=== PATIENT | male | born 1985 | race Two or more races ===

== ENCOUNTER 2016-08-10 23:48 | Emergency (ER) | payer OTHER ==
[~2016-08-10] VITALS: Ht 170.2 cm; Wt 72.6 kg
[2016-08-10] MEDS ORDERED: NORCO 10-325 T1 EACH ORAL (23:58)
[2016-08-11 00:06] VITALS: BP 111/55
[2016-08-11] MEDS ORDERED: HYDROmorphone 1mg/ml Carpuject IM ONE (00:15)
[2016-08-11] MEDS ORDERED: GABAPENTIN300 MG ORAL (00:43)
--- NOTE | 2016-08-11 00:44 | Emergency Room Report ---
History of Present Illness General Chief Complaint: Pain Source: Patient Present Illness [facility] This is a 31-year-old male who presents with chief complaint of postoperative pain. He had right clavicle repair done by Dr. Apodaca at [facility]. He was discharged at 2 PM. By 4 PM when the clavicle block wore off he start having pain. Now complaining of severe 10 out of 10 pain. Radiating to his neck. Worse with movement. No drainage. No fever or chills. His pain medication not helping. No other complaint. No shortness of breath. No new trauma. No fever. Allergies: Coded Allergies: No Known Allergies (Unverified , 08/10/16) Patient History Past Medical History: see triage record, old chart reviewed Past Surgical History: other Pertinent Family History: none Social History: Denies: smoking Immunizations: other Reviewed Nursing Documentation: PMH: Agreed, PSxH: Agreed Review of Systems Eye: Denies: blurred vision, eye pain ENT: Denies: ear pain, nose congestion, throat swelling Respiratory: Denies: cough, shortness of breath Cardiovascular: Denies: chest pain, palpitations Gastrointestinal: Denies: abdominal pain, diarrhea, nausea, vomiting Musculoskeletal: Denies: back pain, joint pain Skin: Denies: rash Neurological: Denies: headache, numbness Endocrine: Denies: increased thirst, increased urine Hematologic/Lymphatic: Denies: easy bruising All Other Systems: negative except mentioned in HPI Physical Exam Vital Signs Date Time Temp Pulse Resp B/P Pulse Ox O2 Delivery O2 Flow Rate FiO2 08/10/16 23:55 97.3 62 16 195/63 98 Room Air vitals with hypertension. Repeat pressures 106/56. Sp02 EP Interpretation: reviewed, normal General Appearance: well appearing, alert, mild distress - From pain Head: normocephalic, atraumatic Eyes: bilateral eye EOMI, bilateral eye PERRL ENT: hearing grossly normal, normal pharynx Neck: full range of motion, supple, no meningismus Respiratory: chest non-tender, lungs clear, normal breath sounds, other - Right chest: Is a wound dressing over the clavicle. No redness. Cardiovascular #1: regular rate, rhythm, no murmur Gastrointestinal: normal bowel sounds, non tender, no mass, no organomegaly, no bruit, non-distended Musculoskeletal: back normal, gait/station normal, normal range of motion Psychiatric: mood/affect normal Skin: warm/dry Medical Decision Making Diagnostic Impression: Primary Impression: Post-operative pain ER Course Patient with postoperative pain. No evidence of infection. No evidence of pneumothorax. He is otherwise stable. We'll discharge home. Pain control with shot of Dilaudid. Other X-Ray Diagnostic Results Other X-Ray Diagnostic Results : X-Ray Ordered: Right clavicle x-rays Date: Aug 11, 2016 Time: 00:42 EP Interpretation: Yes Findings: no dislocation, other - Mid shaft clavicle fracture. Post operative changes. Number of Views: 2 Last Vital Signs Date Time Temp Pulse Resp B/P Pulse Ox O2 Delivery O2 Flow Rate FiO2 08/11/16 00:06 97.3 57 16 111/55 100 Room Air Status: improved Disposition: HOME, SELF-CARE Condition: Stable Scripts Gabapentin* (GABAPENTIN*) 300 Mg Capsule 300 MG ORAL THREE TIMES A DAY, #60 CAP 0 Refills Prov: JANET CALHOUN M.D. 08/11/16 Additional Instructions: Followup with your orthopedic Dr. tomorrow. Return if worse. JANET CALHOUN M.D. Aug 11, 2016 00:44
[2016-08-11 00:50] VITALS: BP 107/58
== END 2016-08-11 00:50 | disposition home or self-care (01) ==
LOC: EMR 08-11 00:41
DX: G89.18 Other acute postprocedural pain (principal); Z98.890 Other specified postprocedural states
CPT/HCPCS: 73000; 96372; 99283; J1170